=== PATIENT | male | born 1980 | race Caucasian/White ===

== ENCOUNTER 2020-12-30 22:31 | Emergency (ER) | payer OTHER ==
[2020-12-30] MEDS ORDERED: Diphtheria,Pertussis(Acell),Tetanus Vaccine 0.5 ML Syringe IM ONE (22:57)
[2020-12-30] MEDS ORDERED: Amoxicillin/Clavulanate K 875-125 MG Tab PO ONE (22:58)
[2020-12-30] MEDS ORDERED: Bacitracin Oint 1 GM U/D Packet TOP ONE (22:58)
--- NOTE | 2020-12-30 23:07 | EDM.PDOC ---
ED HPI GENERAL MEDICAL PROBLEM - General Chief Complaint: Bite:Animal, Insect Stated Complaint: BIT BY DOG Time Seen by Provider: 12/30/20 22:45 Source of Information: Reports: Patient, RN. Denies: Old Records History Limitations: Reports: No Limitations - History of Present Illness INITIAL COMMENTS - FREE TEXT/NARRATIVE: 40 yo male here with a dog bite about 1 hr ago to the back of his L arm. The dog is vaccinated for rabies. Milind's last tetanus was about 10 yrs ago. Onset: Today, Sudden Onset Date: 12/30/20 Onset Time: 10:00 Duration: Hour(s): (1), Constant Location: Reports: Upper Extremity, Left Quality: Reports: Dull Severity: Mild Improves with: Reports: None Worsens with: Reports: None Context: Reports: Trauma Associated Symptoms: Reports: No Other Symptoms Treatments RN NEUROLOGY: Reports: Other (see below) (wiped off the wounds) Left Upper Arm Pain Score (Numeric/FACES): 4 - Related Data Allergies Allergy/AdvReac Type Severity Reaction Status Date / Time No Known Allergies Allergy Verified 12/30/20 22:50 Home Meds: Home Meds Amoxicillin/Clavulanate K [Augmentin 875-125 MG] 1 tab PO Q12H #5 tablet 12/30/20 [Rx] Social & Family History - Caffeine Use Caffeine Use: Reports: Coffee, Soda - Recreational Drug Use Recreational Drug Use: Yes Recreational Drug Type: Reports: Marijuana/Hashish Recreational Drug Use Frequency: Weekly ED ROS GENERAL - Review of Systems Review Of Systems: See Below Constitutional: Reports: No Symptoms Musculoskeletal: Reports: Arm Pain (at bite site of L arm) Skin: Reports: Wound (puncture wounds/lacerations(small) of posterior L arm. ) Neurological: Reports: No Symptoms ED EXAM, ANIMAL BITE - Physical Exam Exam: See Below Exam Limited By: No Limitations General Appearance: Alert, WD/WN, No Apparent Distress, Obese Extremities: Other (dog bite posterior L arm) Neurological: Alert, Oriented, CN II-XII Intact, Normal Cognition, No Motor/Sensory Deficits Psychiatric: Normal Affect, Normal Mood Skin Exam: Normal Color, Warm/Dry, Other (there is a combination of punctures and lacerations of the posterior L arm, the lac's are not long, with the largest being about 0.75 cm) Lymphadenopathy: Bilateral: No Adenopathy Course - Vital Signs Text/Narrative:: Wound cleaned and dressed by RN Last Recorded V/S: Last Vital Signs Temp 36.7 C 12/30/20 22:50 Pulse 96 12/30/20 22:50 Resp 16 12/30/20 22:50 BP 159/88 H 12/30/20 22:50 Pulse Ox 97 12/30/20 22:50 - Orders/Labs/Meds Orders: Active Orders 24 hr Category Date Time Status Vaccines to be Administered [RC] PER UNIT ROUTINE Care 12/30/20 22:58 Ordered Bacitracin [Bacitracin Oint 1 GM] Med 12/30/20 22:58 Once 1 dose TOP ONETIME ONE Meds: Medications Discontinued Medications Generic Name Dose Route Start Last Admin Trade Name Freq PRN Reason Stop Dose Admin Amoxicillin/Clavulanate Potassium 1 tab 12/30/20 22:58 Amoxicillin/Clavulanate K 875-125 Mg Tab PO 12/30/20 22:59 ONETIME ONE Diphtheria/Tetanus/Acell Pertussis 0.5 ml 12/30/20 22:57 Diphtheria,Pertussis(Acell),Tetanus Vaccine 0.5 Ml Syringe IM 12/30/20 22:58 .ONCE ONE Departure - Departure Time of Disposition: 23:15 Disposition: Home, Self-Care 01 Condition: Fair Clinical Impression: Dog bite of left arm Qualifiers: Encounter type: initial encounter Qualified Code(s): S41.152A - Open bite of left upper arm, initial encounter; W54.0XXA - Bitten by dog, initial encounter - Discharge Information *PRESCRIPTION DRUG MONITORING PROGRAM REVIEWED*: Not Applicable *COPY OF PRESCRIPTION DRUG MONITORING REPORT IN PATIENT DIONISIO: Not Applicable Prescriptions: Amoxicillin/Clavulanate K [Augmentin 875-125 MG] 1 tab PO Q12H #5 tablet Referrals: PCP,None [Primary Care Provider] - Additional Instructions: Take Augmentin every 12 hrs with food until gone. Clean your wounds at least twice a day with soap and water. Dry. Apply antibiotic ointment and a new dressing. Recheck for signs of infection. Acetaminophen for pain relief as needed. Sepsis Event Note (ED) - Evaluation Sepsis Screening Result: No Definite Risk - Focused Exam Vital Signs: Vital Signs Temp Pulse Resp BP Pulse Ox 12/30/20 22:50 36.7 C 96 16 159/88 H 97 12/30/20 22:48 36.7 C 96 16 159/88 H 97 - My Orders Last 24 Hours: My Active Orders 12/30/20 22:58 Vaccines to be Administered [RC] PER UNIT ROUTINE Bacitracin [Bacitracin Oint 1 GM] 1 dose TOP ONETIME ONE - Assessment/Plan Last 24 Hours: My Active Orders 12/30/20 22:58 Vaccines to be Administered [RC] PER UNIT ROUTINE Bacitracin [Bacitracin Oint 1 GM] 1 dose TOP ONETIME ONE
== END 2020-12-30 23:22 | disposition home or self-care (01) ==
LOC: JP.ED 22:31
DX: S41.152A Open bite of left upper arm, initial encounter (principal); Z23 Encounter for immunization; W54.0XXA Bitten by dog, initial encounter
CPT/HCPCS: 90471; 90715; 99283; A9270